=== PATIENT | male | born 1955 | race Caucasian/White ===

== ENCOUNTER 2025-02-14 17:38 | Emergency (ER) | payer OTHER, SELFPAY ==
[2025-02-14 17:40] VITALS: BP 166/94
--- NOTE | 2025-02-14 18:34 | ED.GENMED ---
History of Present Illness
<Bess Dixon PA-C - Last Filed: 02/15/25 15:11>
General
Chief Complaint: Chest Pain
Source: patient
Exam Limitations: none
Time Seen by Provider: 02/14/25 18:21
Nursing documentation reviewed up to this point in time: agreed with
History of Present Illness
History of Present Illness:
Patient is a 69-year-old male with history of asthma who presents to the emergency department for evaluation of chest discomfort. Patient states he was awoken around 1 AM last night with a sharp pain in his mid chest which radiated up into his
teeth. This pain lasted a few minutes and then resolved. Fortunately�he was able to get back to sleep and upon waking he felt much better. 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
chest and a feeling of shortness of breath. He denies any improvement in symptoms with certain positions. No exertional component to chest tightness.
He denies any fever. No recent productive cough or viral symptoms. No recent travel or surgeries. No lower extremity edema or pain.
Patient denies any past history of coronary artery disease however he does state that about 1 year ago he had similar symptoms and was found to have a pericardial effusion. This was drained at [facility]. He did briefly follow-up with a dental coordinator
although has since been 'released'
Review of Systems
<Bess Dixon PA-C - Last Filed: 02/15/25 15:11>
Review of Systems
Allergies reviewed?: Yes
All Other Systems: ROS reviewed and negative except as documented in HPI and ROS
Phy Exam
<Bess Dixon PA-C - Last Filed: 02/15/25 15:11>
Physical Exam
Physical Exam:
Vitals: Hypertensive, otherwise vital signs stable. Afebrile
General: Patient is well appearing, no acute distress
Skin: Warm and dry, no rashes or lesions
Head: Normocephalic, atraumatic
Eyes: Sclera nonicteric. EOMs intact. No nystagmus.
Throat: Protecting airway
Neck: Normal ROM, no cervical spine tenderness, no meningismus. No JVD
Cardiac: Regular rate and rhythm, no murmurs. No reproducible chest wall tenderness.
Pulm: Normal respiratory effort. Lungs clear. No wheezing. O2 97 on room air
Abdomen: No abdominal tenderness.
Extremities: No evidence of cyanosis or edema. 2+ palpable DP pulses bilaterally
Neuro: AAOx3. Grossly intact
Psychiatric: Normal affect.
Scores
<Bess Dixon PA-C - Last Filed: 02/15/25 15:11>
Heart Score for Chest Pain Patients
STEMI patient?: Not applicable
Course
<Bess Dixon PA-C - Last Filed: 02/15/25 15:11>
Orders/Labs/Results
Orders:
Orders
02/14/25 17:40
Electrocardiogram (*1) Urgent
Reason for Study: Chest Pain
EKG- Treatment ONCE
02/14/25 18:44
CR Chest - 2 Views Urgent
Comment:
Reason For Exam: chest pain, SOB
02/14/25 19:04
Complete Blood Count/With Diff Urgent
Comprehensive Metabolic Panel Urgent
D-Dimer Urgent
NT-proBNP Urgent
Troponin I Urgent
02/14/25 20:36
Ketorolac [Toradol] 30 mg IV NOW STA
02/14/25 20:48
Troponin I Urgent
02/14/25 22:00
Electrocardiogram (*1) Urgent
Reason for Study: Chest Pain
EKG- Treatment ONCE
Abnormal Lab Results
02/14/25
19:04
Absolute Monos (auto) 1.1 H 10^3/uL
(0.1-0.6)
Lymphocytes % 20.3 L %
(20.5-51.1)
Monocytes % 11.3 H %
(1.7-9.3)
02/14/25 19:04
02/14/25 19:04
Vital Signs
Initial and Last Documented VS:
Initial Vital Signs
Temp Pulse Resp BP Pulse Ox
98.7 F 91 18 166/94 97
02/14/25 17:40 02/14/25 17:40 02/14/25 17:40 02/14/25 17:40 02/14/25 17:40
Last Documented Vital Signs
Temp Pulse Resp BP Pulse Ox
98.7 F 69 26 148/86 95
02/14/25 17:40 02/14/25 21:15 02/14/25 21:15 02/14/25 21:00 02/14/25 21:15
<Nazario Roberts, DO - Last Filed: 02/14/25 21:37>
Orders/Labs/Results
Orders:
Orders
02/14/25 17:40
Electrocardiogram (*1) Urgent
Reason for Study: Chest Pain
EKG- Treatment ONCE
02/14/25 18:44
CR Chest - 2 Views Urgent
Comment:
Reason For Exam: chest pain, SOB
02/14/25 19:04
Complete Blood Count/With Diff Urgent
Comprehensive Metabolic Panel Urgent
D-Dimer Urgent
NT-proBNP Urgent
Troponin I Urgent
02/14/25 20:36
Ketorolac [Toradol] 30 mg IV NOW STA
02/14/25 20:48
Troponin I Urgent
02/14/25 22:00
Electrocardiogram (*1) Urgent
Reason for Study: Chest Pain
EKG- Treatment ONCE
Abnormal Lab Results
02/14/25
19:04
Absolute Monos (auto) 1.1 H 10^3/uL
(0.1-0.6)
Lymphocytes % 20.3 L %
(20.5-51.1)
Monocytes % 11.3 H %
(1.7-9.3)
02/14/25 19:04
02/14/25 19:04
Vital Signs
Initial and Last Documented VS:
Initial Vital Signs
Temp Pulse Resp BP Pulse Ox
98.7 F 91 18 166/94 97
02/14/25 17:40 02/14/25 17:40 02/14/25 17:40 02/14/25 17:40 02/14/25 17:40
Last Documented Vital Signs
Temp Pulse Resp BP Pulse Ox
98.7 F 69 26 148/86 95
02/14/25 17:40 02/14/25 21:15 02/14/25 21:15 02/14/25 21:00 02/14/25 21:15
<Bess Dixon PA-C - Last Filed: 02/15/25 15:11>
MDM/Problems Addressed
Differential Diagnosis Includes:
Not limited to: Unstable angina, acute coronary syndrome, pericarditis, pleural effusion, pericardial effusion, congestive heart failure, PE, etc.
MDM/Problems Addressed:
69 year-old male presenting after two episodes of chest discomfort with mild sensation of shortness of breath. No clear exertional component to symptoms. No fever or productive cough. Patient with history of pericardial effusion secondary to
pericarditis. No history of CAD. Vitals and physical exam as above. Patient well appearing, no apparent distress. Heart regular rhythm, lungs clear bilaterally. No clinical evidence of DVT on exam. He has 2+ palpable radial pulses bilaterally.
Differential as above. ED plan: labs, serial troponins/EKGs, d-dimer and pro-BNP. Will check chest x-ray.
Update: labs without clinically significant abnormalities. Undetectable troponins x2 . EKG with normal sinus rhythm and no acute ischemic changes. No clear [place] depressions or ST elevations. d-dimer negative. Chest x-ray without acute findings.
Work up in ED negative. Patients symptoms did resolve after dose of IV toradol.
Patient seen alongside attending physician.
Do not suspect ACS, aortic dissection, or PE. Although no clear evidence on EKG, given history and improvement in symptoms w/ toradol, symptoms may represent pericarditis with somewhat atypical presentation. No findings to suggest significant
pericardial effusion. Patients vital signs are normal and he is in no distress. His symptoms have resolved. Do not feel admission indicated. Will place patient on chest pain hotline and tx for suspected pericarditis w/ Motrin. Strict return
precautions discussed. Patient and patient�s family comfortable with plan.
Chronic conditions affecting care:
History of pericardial effusion
Acute Exacerbation and/or Progression of Chronic Illness:
N/A
<Bess Dixon PA-C - Last Filed: 02/15/25 15:11>
*Radiology
Radiology exam reviewed: preliminary read by ED provider (Chest x-ray reviewed by me-no acute abnormalities) and radiology read reviewed
*Pulse Oximetry
SaO2: 97
Oxygen Mode of Delivery: Room air
Patient hypoxic: no
*EKG
Interpreted by ED Provider?: Yes
EKG Intrepretation Date: 02/14/25
Interpretation: normal
Comparison EKG: no changes
Heart Rate: 82
Rate: normal
Rhythm: sinus
[place]: normal axis
Interval: normal QT interval
QRS Pattern: normal QRS
Ischemia: no ischemia
*Washery Boss Interpretation
Rate: normal
Interpretation: normal
Heart Rate: 73
Rhythm: sinus
*Critical Care Note
Total Time (30-74mins, 75-104mins- exclusive of procedures): Not Applicable
ED Attending Note
<Bess Dixon PA-C - Last Filed: 02/15/25 15:11>
-
Portions of this chart may have been created with voice recognition software.� Occasional wrong word or��sound alike� substitutions may have occurred due to the inherent limitations of voice recognition software.
<Nazario Roberts DO - Last Filed: 02/14/25 21:37>
ED Attending Note
Patient seen and examined by attending physician: Yes
I performed a history and physical exam of patient and discussed management with resident, I reviewed resident's note and agree with documented findings and plan of care.: Yes
ED Attending Note:
Seen with PA examined independently 69-year-old male status post pericardial fusion drainage at [facility] a few years ago 2 episodes of sharp chest pain today, no fever EKG noted, troponin noted, D-dimer noted, patient tells me he feels much improved
after IV Toradol, suspect pericarditis, believe he can safely be discharged to home on NSAIDs PCP cardiology follow-up ER if worsening symptoms
Discharge Plan
Departure
Patient Disposition: Home (Routine Discharge)
Date of Disposition: 02/14/25
Time of Disposition: 22:13
Patient with high blood pressure during this ER visit?: Yes
Condition: Good
Discharge Problem:
Chest pain
Instructions: Chest Pain CBC Follow Up, BLOOD PRESSURE
Referrals:
Brian Foster MD [Active, Cardiology] - Follow up in 2-3 days
Lilia Curiel CRNP [Family Provider, General]
Activity Restrictions/Additional Instructions:
RETURN TO THE EMERGENCY DEPARTMENT FOR ANY FEVER, CHILLS, PERSISTENT/WORSENING CHEST PAIN OR SHORTNESS OF BREATH, ANY DIFFICULTY BREATHING, SWELLING IN LOWER EXTREMITIES, OR ANY OTHER CONCERNS
- As discussed�your lab work and workup in the emergency department showed no acute abnormalities. Your symptoms may be related to pericarditis which is an inflammation around the heart.
- Please take 600 mg of ibuprofen every 8 hours for the next 1 to 2 weeks. Is important stay well-hydrated. Please avoid any significant exertional activities until cleared by cardiology
- Follow-up with cardiology for further evaluation/management to ensure that your symptoms improve
Monitor your symptoms very closely and return to the emergency department with any acute worsening/new symptoms or any other concerns
Interventions
Interventions:
*Risk Screen - Suicide Last Done: 02/14/25 17:42
*General Assessment Last Done: 02/14/25 17:42
*Neglect/Abuse Screening Last Done: 02/14/25 17:42
*ED- Fall Risk Assessment Last Done: 02/14/25 18:56
*ED COVID-19 Vaccine History Last Done: 02/14/25 17:42
*Nursing Disposition Last Done: 02/14/25 22:43
ED- Cardiac Assessment Last Done: 02/14/25 18:56
Discharge Date and Time
Discharge Date/Time: 02/14/25 22:44
Print Language: ICELANDIC
[2025-02-14 18:56] VITALS: BMI 28.6
[2025-02-14 19:21] LABS: Hematocrit 44.3 % (39.0-52.0); Hemoglobin 14.9 g/dL (13.0-18.0); Mean Corp Hgb Conc. 33.6 g/dL (33.0-37.0); Mean Corpuscular Volume 83.9 fL (80.0-94.0); Nucleated Red Blood Cells % 0 % (-); Platelet Count 217 10^3/uL (130-400); Red Cell Dist. Width 13.4 % (11.5-14.5)
[2025-02-14 19:37] LABS: D-Dimer < 0.27 ug/mlFEU (0.00-0.50)
[2025-02-14 19:43] LABS: ALT (SGPT) 24 U/L (0-50); AST (SGOT) 25 U/L (17-59); Albumin 4.2 g/dl (3.5-5.0); Alkaline Phosphatase 76 U/L (38-126); Blood Urea Nitrogen 15 mg/dl (9-20); Calcium 9.3 mg/dl (8.4-10.2); Carbon Dioxide 29 mmol/L (22-30); Chloride 104 mmol/L (98-107); Estimated Creatinine Clearance 85 ml/min; Glucose 94 mg/dl (70-99); Potassium 4.2 mmol/L (3.5-5.1); Sodium 136 mmol/L (135-145); Total Protein 6.8 g/dl (6.3-8.2); eGFR > 60.00
[2025-02-14 19:52] VITALS: BP 137/78
[2025-02-14 19:54] LABS: Troponin I < 0.012 ng/ml
[2025-02-14 20:00] VITALS: BP 128/78
[2025-02-14] MEDS: TORADOL 30 MG IV (20:49)
[2025-02-14 21:00] VITALS: BP 148/86
[2025-02-14 21:29] LABS: Troponin I < 0.012 ng/ml
== END 2025-02-14 22:44 | disposition home or self-care (01) ==
LOC: EMR 17:38
PROVIDERS: Physician Assistant; EMERGENCY PHYSICIAN Emergency Medicine; FAMILY PHYSICIAN Nurse Practitioner Adult Health
DX: R07.9 Chest pain, unspecified (principal); J45.909 Unspecified asthma, uncomplicated
CPT/HCPCS: 99284; 96374; 71046; 80053; 83880; 84484; 85025; 85379; 93005

== ENCOUNTER → 2025-03-03 07:28 | Outpatient (REF) | payer OTHER, SELFPAY | LOC: HWRCS 07:28 | PROVIDERS: ATTENDING PHYSICIAN Student in an Organized Health Care Education/Training Program; FAMILY PHYSICIAN Nurse Practitioner Adult Health | DX: Z76.89 Persons encountering health services in other specified circumstances (principal); R07.9 Chest pain, unspecified | CPT/HCPCS: 93306 ==

== ENCOUNTER → 2025-03-08 12:55 | Outpatient (REF) | payer OTHER, SELFPAY | LOC: RCS 12:55 | PROVIDERS: ATTENDING PHYSICIAN Student in an Organized Health Care Education/Training Program; FAMILY PHYSICIAN Nurse Practitioner Adult Health | DX: Z76.89 Persons encountering health services in other specified circumstances (principal); R07.9 Chest pain, unspecified | CPT/HCPCS: 93017; 93350 ==